=== PATIENT | male | born 1960 | race American Indian/Alaskan Native ===

== ENCOUNTER 2018-07-17 18:01 | Emergency (ER) | payer OTHER ==
[2018-07-17 18:10] VITALS: BP 135/91; PULSE 87; RESP 20; TEMP 97.9; O2SAT 99
[2018-07-17] MEDS ORDERED: Amoxicillin-Clav 875-125 mg Tab PO STA (18:29)
[2018-07-17] MEDS ORDERED: Amoxicillin-Clav 875-125 mg Tab PO ONE (18:38)
--- NOTE | 2018-07-17 18:42 | C.PDOC ---
History Of Present Illness 57 y/o male presents to the ER complaining of left sided facial swelling which has been present since yesterday and gradually becoming worse in the morning. Patient thinks he might have gum infection. Patient denies having bleeding, discharge, fever, and chills. Time Seen by Provider: 07/17/18 18:17 Chief Complaint (Nursing): Dental Pain History Per: Patient History/Exam Limitations: no limitations Onset/Duration Of Symptoms: Days Current Symptoms Are (Timing): Still Present Severity: Moderate Past Medical History Reviewed: Historical Data, Nursing Documentation, Vital Signs Vital Signs: Last Vital Signs Temp 97.9 F 07/17/18 18:06 Pulse 87 07/17/18 18:06 Resp 20 07/17/18 18:06 BP 135/91 H 07/17/18 18:06 Pulse Ox 99 07/17/18 18:06 - Medical History PMH: No Chronic Diseases Surgical History: No Surg Hx Family History: States: No Known Family Hx - Social History Hx Tobacco Use: Yes Hx Alcohol Use: No Hx Substance Use: No - Immunization History Hx Tetanus Toxoid Vaccination: No Hx Influenza Vaccination: No Hx Pneumococcal Vaccination: No Review Of Systems Except As Marked, All Systems Reviewed And Found Negative. Constitutional: Negative for: Fever, Chills Skin: Positive for: Other (facial swelling) Physical Exam - Physical Exam Appears: Non-toxic, No Acute Distress Skin: Normal Color, Warm, Dry Head: Normacephalic, Swelling (left-sided facial swelling, mainly prominent at nasolabial fold) Eye(s): bilateral: Normal Inspection Nose: Normal Oral Mucosa: Moist Teeth: No Normal Dentition (very poor dentition), Caries (multiple caries, multiple rotting teeth) Gingiva: Swelling (swelling around left upper molars), No Abscess Neck: Supple Chest: Symmetrical Cardiovascular: Rhythm Regular, No Murmur Respiratory: Normal Breath Sounds, No Wheezing Neurological/Psych: Oriented x3, Normal Speech ED Course And Treatment O2 Sat by Pulse Oximetry: 99 (RA) Pulse Ox Interpretation: Normal Medical Decision Making Medical Decision Making: Impression: Gingivitis, Dental Caries Plan: * Augmentin PO Progress: Patient has been discharged with prescription for Augmentin. Patient has been instructed to follow up with dentist. Disposition Counseled Patient/Family Regarding: Diagnosis, Need For Followup, Rx Given - Disposition Referrals: [facility] [Outside] Disposition: HOME/ ROUTINE Disposition Time: 18:40 Condition: STABLE Additional Instructions: Take antibiotic twice daily and be sure to finish taking all of antibiotic Apply ice to area for swelling and can take Ibuprofen Follow up with dentist or clinic Prescriptions: Amoxicillin/Clavulanate [Augmentin 875 MG-125 MG] 1 tab PO BID #14 tab Instructions: Tooth Decay, Adult (DC) Forms: [employer] ([place]) - POA Present On Arrival: None - Clinical Impression Clinical Impression: Gingivitis, Dental caries - PA / ALGORITHM DEVELOPER / Resident Statement MD/DO has reviewed & agrees with the documentation as recorded. - Scribe Statement The provider has reviewed the documentation as recorded by the Breanne Mcgill Provider Attestation All medical record entries made by the Sanaibtwyla were at my direction and personally dictated by me. I have reviewed the chart and agree that the record accurately reflects my personal performance of the history, physical exam, medical decision making, and the department course for this patient. I have also personally directed, reviewed, and agree with the discharge instructions and dis position.
== END 2018-07-17 18:47 | disposition home or self-care (01) ==
LOC: C.ER 18:01
DX: K05.10 Chronic gingivitis, plaque induced (principal); K02.9 Dental caries, unspecified